=== PATIENT | male | born 1975 | race Caucasian/White ===

== ENCOUNTER 2019-05-03 09:17 | Emergency (ER) | payer OTHER ==
[~2019-05-03] VITALS: Ht 188 cm; Wt 73.9 kg
--- NOTE | 2019-05-03 09:27 | NUR ---
faith, in custody, medical clearance for otb, c/o lower back, rib pain. on room air, breathing evenly and unlabored. connected to the monitor and pulse ox. kept comfortable, will continue to monitor accordingly.
[2019-05-03 09:45] VITALS: BP 109/73
--- NOTE | 2019-05-03 09:46 | NUR ---
patient left accompanied by lapd, in no distress.
== END 2019-05-03 09:46 ==
LOC: ER 09:20
DX: G89.29 Other chronic pain (principal); M54.5 Low back pain; F12.90 Cannabis use, unspecified, uncomplicated